=== PATIENT | female | born 1990 | race Caucasian/White ===

== ENCOUNTER 2017-07-25 16:49 | Emergency (ER) | payer OTHER ==
[2017-07-25 16:53] VITALS: BP 149/84; PULSE 109; RESP 20; TEMP 97.2; O2SAT 95
--- NOTE | 2017-07-25 17:13 | EDPHY ---
H & P Time Seen by Provider: 07/25/17 17:10 HPI/ROS: CHIEF COMPLAINT: Panic attack HISTORY OF PRESENT ILLNESS: This 26 y/o female with history of anxiety presents following a panic attack. She states she has many things she is stressed about and has had anxiety and depression for weeks but has not been able to get ahold of her psychiatrist. She takes Trileptal, Trazodone, Adderall, Lorazepam, and Effexor. Her father at bedside states her anxiety is generally exacerbated by alcohol use. Patient concurs with this and admits to heavy drinking last night, about six drinks. She did take Ativan today, 2mg around lunchtime, but states this has not helped to relieve her anxiety. The patient denies suicidal or homicidal ideation. Her father states she felt like she was "going to have a seizure" due to the amount of panic, and that this has happed to her and to him in the past. He additionally requests a referral to a new psychiatrist. REVIEW OF SYSTEMS: A 10 point review of systems was performed and is negative with the exception of the elements mentioned in the history of present illness. Past Medical/Surgical History: Anxiety Social History: Father at bedside. Nonsmoker. Occasional heavy alcohol use. Smoking Status: Never smoked Physical Exam: General Appearance: Alert, tearful, appears anxious. Eyes: Pupils equal and round, no conjunctival pallor or injection ENT, Mouth: Mucous membranes moist Neck: Normal inspection Respiratory: Lungs are clear to auscultation Cardiovascular: Regular rate and rhythm Gastrointestinal: Abdomen is soft and non-tender Neurological: A&O, nonfocal exam Skin: Warm and dry, no rash Extremities: Nontender, no pedal edema Psychiatric: Anxious, tearful at times. Constitutional: Initial Vital Signs Temperature (C) 36.2 C 07/25/17 16:49 Heart Rate 109 H 07/25/17 16:49 Respiratory Rate 20 07/25/17 16:49 Blood Pressure 149/84 H 07/25/17 16:49 O2 Sat (%) 95 07/25/17 16:49 O2 Delivery Mode Room Air Allergies/Adverse Reactions: cephalexin [From Keflex] Allergy (Verified 07/25/17 16:53) Home Medications: Medication Instructions Recorded Adderall 10 MG (*) 07/25/17 Effexor Xr 07/25/17 LORazepam 07/25/17 Trileptal 07/25/17 traZODone 07/25/17 Medical Decision Making ED Course/Re-evaluation: 26 y/o female presents with anxiety. She has already taken 2mg Ativan at home without relief. Patient's last Ativan was around 12:00 today. Plan to administer an additional 1mg PO Ativan for anxiety relief. I called the pt's psychiatrist. Mental health consulted to provide resources to the patient and her father. Psychiatrist's name and number: Dr. Gus Mcbride 17:44 Patients father states she wants to go home. I discussed further that I would like to try to contact the patient's psychiatrist. Patient and her father are agreeable to this. 18:[address] Mcbride, the patient's psychiatrist. He will see her at 13:45 tomorrow. He requests she call to confirm tomorrow morning. Patient and her father wish to leave the emergency department. They have been notified of the appointment tomorrow. [facility] given. Plan to d/c home. Differential Diagnosis: Differential diagnosis includes though it is not limited to suicidal ideation, overdose, acute psychosis, self-injury, alcohol withdrawal. - Data Points Medications Given: Discontinued Medications Lorazepam (Ativan) 1 mg PO EDNOW ONE Stop: 07/25/17 17:58 Last Admin: 07/25/17 18:04 Dose: 1 mg Departure - Departure Disposition: Home, Routine, Self-Care Clinical Impression: Anxiety Condition: Good Instructions: Anxiety (ED) Additional Instructions: 1. Follow up with your psychiatrist tomorrow at 13:45. Call in the morning to confirm. 2. We have given you a referral to [facility]. They have a 24 hour crisis facility and can help provide further resources. 3. Return to the emergency department for thoughts of self-harm, racing thoughts or other concerns. Referrals: [facility],. [Clinic] - As per Instructions Report Scribed for: Tamie Bloom Report Scribed by: Nallely Borrero Date of Report: 07/25/17 Time of Report: 17:29 Physician Review and Approval Statement: 07/25/17 17:29 Portions of this note were transcribed by a medical record technician. I personally performed a history, physical exam, medical decision making, and confirmed accuracy of information the transcribed note.
[2017-07-25] MEDS ORDERED: LORazepam 1 MG TAB PO ONE (17:57)
== END 2017-07-25 18:33 | disposition home or self-care (01) ==
DX: F41.9 Anxiety disorder, unspecified (principal)